=== PATIENT | male | born 1990 | race Caucasian/White ===

== ENCOUNTER 2018-12-01 10:39 | Day surgery (SDC) | payer OTHER ==
[2018-12-01] MEDS ORDERED: ceFAZolin 2 GM/DEXTROSE 100 ML IV ONE (10:50)
[2018-12-01] MEDS ORDERED: LR 1,000 ML IV ONE (10:51)
--- NOTE | 2018-12-01 13:04 | PDHPUP ---
History & Physical Update H&P update statement: This history and physical update is based on an assessment of the patient which was completed after admission or registration (within 24 hours), but prior to the surgery/procedure. H&P update: H&P reviewed & patient examined, no change in patient's condition since H&P completed
[2018-12-01] MEDS ORDERED: BUPIVACAINE 0.5% 30 ML SDV ONE (13:10)
[2018-12-01] MEDS ORDERED: MIDAZOLAM 2 MG/2 ML VIAL IVP ONE (13:11)
--- NOTE | 2018-12-01 13:11 | PDANEPAE ---
ANE History of Present Illness testicular torsion, resolved. Here for bilateral orchiopexy ANE Past Medical History - Cardiovascular History Hx Hypertension: No Hx Arrhythmias: No Hx Chest Pain: No Hx Coronary Artery / Peripheral Vascular Disease: No Hx CHF / Valvular Disease: No Hx Palpitations: No - Pulmonary History Hx COPD: No Hx Asthma/Reactive Airway Disease: No Hx Recent Upper Respiratory Infection: No Hx Oxygen in Use at Home: No Hx Sleep Apnea: No Sleep Apnea Screening Result - Last Documented: Negative - Neurologic History Hx Cerebrovascular Accident: No Hx Seizures: No Hx Dementia: No - Endocrine History Hx Diabetes: No - Renal History Hx Renal Disorders: No - Liver History Hx Hepatic Disorders: No - Neurological & Psychiatric Hx Hx Neurological and Psychiatric Disorders: No - Cancer History Hx Cancer: No - Congenital Disorder History Hx Congenital Disorders: No - GI History Hx Gastrointestinal Disorders: No Gastrointestinal History Comment: OCCATIONAL HEARTBURN - Other Health History Other Health History: NONE - Chronic Pain History Chronic Pain: No - Surgical History Prior Surgeries: wisdom teeth extracted. T&A ANE Review of Systems Review of Systems: - Exercise capacity METS (RN): 5 METS ANE Patient History - Allergies Allergies/Adverse Reactions: No Known Allergies Allergy (Unverified 11/29/18 16:30) - Home Medications Home Medications: Cholecalciferol (Vitamin D3) 11/29/18 [Last Taken 11/22/18] Fish Oil 1000 mg (*) 11/29/18 [Last Taken 11/22/18] - NPO status NPO Since - Liquids (Date): 12/01/18 NPO Since - Liquids (Time): 09:15 NPO Since - Solids (Date): 12/01/18 NPO Since - Solids (Time): 21:00 - Smoking Hx Smoking Status: Never smoked - Family Anes Hx Family Hx Anesthesia Complications: none ANE Labs/Vital Signs - Vital Signs Blood Pressure: 122/76 Heart Rate: 65 Respiratory Rate: 16 O2 Sat (%): 99 Height: 195.58 cm Weight: 90.718 kg ANE Physical Exam - Airway Neck exam: FROM Mallampati Score: Class 1 Mouth exam: normal dental/mouth exam - Pulmonary Pulmonary: no respiratory distress, no rales or rhonchi - Cardiovascular Cardiovascular: regular rate and rhythym, no murmur, rub, or gallop - ASA Status ASA Status: I ANE Anesthesia Plan Anesthesia Plan: GA w LMA Total IV Anesthesia: No
[2018-12-01] MEDS ORDERED: DEXAMETHASONE 4 MG/ML VIAL ONE (13:13)
[2018-12-01] MEDS ORDERED: ONDANSETRON 4 MG/2 ML VIAL ONE (13:13)
[2018-12-01] MEDS ORDERED: LIDOCAINE 2% 100 MG/5 ML SYR ONE (13:13)
[2018-12-01] MEDS ORDERED: fentaNYL 100 MCG/2 ML INJ ONE (13:14)
[2018-12-01] MEDS ORDERED: PROPOFOL 200 MG/20 ML VIAL ONE ×2 (13:14→13:30)
[2018-12-01] MEDS ORDERED: MIDAZOLAM 2 MG/2 ML VIAL ONE (13:15)
[2018-12-01] MEDS ORDERED: HYDROmorphONE/DILAUDID 2 MG/ML INJ ONE (13:53)
[2018-12-01] MEDS ORDERED: BACITRACIN ZINC 0.5 OZ OINTTUBE TP ONE (15:23)
[2018-12-01] MEDS ORDERED: DIAZEPAM 5 MG/ML 1 ML SYR IVP PRN (15:25)
[2018-12-01] MEDS ORDERED: NALOXONE HCL 0.4 MG/ML INJ IVP PRN (15:25)
[2018-12-01] MEDS ORDERED: MEPERIDINE 25 MG/0.5 ML AMP IVP PRN (15:25)
[2018-12-01] MEDS ORDERED: oxyCODONE IR 5 MG TAB PO PRN (15:25)
[2018-12-01] MEDS ORDERED: ACETAMINOPHEN 500 MG TAB PO PRN (15:25)
[2018-12-01] MEDS ORDERED: PROMETHAZINE HCL 25 MG/ML INJ IVP PRN (15:25)
[2018-12-01] MEDS ORDERED: HYDROmorphONE/DILAUDID 2 MG/ML INJ IVP PRN (15:25)
[2018-12-01] MEDS ORDERED: fentaNYL 100 MCG/2 ML INJ IVP PRN (15:25)
[2018-12-01] MEDS ORDERED: LR 500 ML IV PRN (15:25)
--- NOTE | 2018-12-01 15:38 | POSTANESTH ---
Post Anesthetic Evaluation Cardiovascular Status: Normal, Stable Respiratory Status: Normal, Stable Level of Consciousness/Mental Status: Can Participate in Eval, Mildly Sleepy, Arousable Pain Control: Adequate, Prn Tx Ordered Nausea/Vomiting Control: Adequate, Prn Tx Ordered Complications Possibly Related to Anesthesia: None Noted
--- NOTE | 2018-12-01 15:58 | POSTOPPROG ---
Post Op Note Date of Operation: 12/01/18 Surgeon: Amy Chawla Anesthesiologist: Zachary Anesthesia: GET(General Endotracheal) Pre-op Diagnosis: left intermittent torsion of testicle Post-op Diagnosis: same Indication: left intermittent torsion of testicle Procedure: bilateral orchipexy Findings: left testicle w mild edema, suggestingrecent evidence of trauma from torsio Inf/Abcess present in the surg proc area at time of surgery?: No EBL: Minimal Complications: none, pt tolerated procedure well Specimen(s): tunica vaginalis
[2018-12-01 16:48] VITALS: BP 123/78
--- NOTE | 2018-12-02 09:16 | GOP ---
[f rep st] OPERATIVE REPORT DATE OF OPERATION: 12/01/2018 SURGEON: Amy Chawla MD ANESTHESIA: General. ANESTHESIOLOGIST: Cristina Sharma DO PREOPERATIVE DIAGNOSIS: Left intermittent torsion of the testicle. POSTOPERATIVE DIAGNOSIS: Left intermittent torsion of the testicle. PROCEDURE PERFORMED: Bilateral orchiopexies. FINDINGS: edema of left testicle and surrounding datros indicating prior trauma from torsion. Normal right testicle. Good blood flow to both testicles. SPECIMENS: Tunica vaginalis. ESTIMATED BLOOD LOSS: Less than 5 mL. INDICATIONS: The patient presented to my office after having been seen in the ER with severe left testicular pain. The ER doctor did a manual detorsion of his testicle in the ER and he had immediate relief of pain. He then underwent an ultrasound, showing no torsion. Of note, he did not have any ultrasound demonstrating torsion. He then was referred to my office for discussion on future management of his left testicle. My recommendation was to do bilateral orchiopexies, given there is a great likelihood that he will have a repeat torsion on the left that may not be intermittent and may lead to testicular injury. He understood this and agreed to proceed. I did discuss the risks of orchiopexy, including bleeding, infection, pain, injury to the blood supply of the testicle, injury to the vas deferens, testicular atrophy over time, scrotal hematoma, infection, recurrent torsion, failure of the orchiopexy, and these risks were small, though the benefit of bilateral orchiopexies did not outweigh these risks, and he agreed to proceed. DESCRIPTION OF PROCEDURE: The patient was taken back to the operating room and placed on the operating room table in supine position. General anesthesia was induced without complication. Time-out performed. Core measures were satisfied , including placement of a Lucrecia Hugger, SCDs, and administration of 2 g Ancef antibiotics. He was in a supine position. His genitalia were shaven, then prepped with Betadine and draped in the standard surgical fashion. A marking pen was used to cecy out the median raphae and then 0.5% Marcaine plain was used to anesthetize the skin at the area that would be the incision, then a 10-blade was used to cecy out a 5 cm incision in the median raphae. Electrocautery took this incision down to the dartos. Left testicle was positioned underneath the incision and the dartos-cremasteric attachments were then dissected free off the tunica vaginalis with blunt and electrocautery dissection. The tunica vaginalis, once it was completely exposed, was then opened sharply with tenotomy scissors and then electrocautery used to continue to open the tunica vaginalis in a longitudinal fashion. The testicle was then exposed. Of note, there was edema surrounding the testicle and the dartos, indicating that there was prior trauma that had been recent, which would be approximately a week ago. At this point, the tunica vaginalis had been opened, the testicle evaluated and examined. It was very healthy. There were no abnormalities. The tunica vaginalis was excised approximately 1 cm away from the epididymis and cord structure. It was excised and electrocautery was used liberally on the edge and then the edge was oversewn with 3-0 chromic and this was to prevent future hydrocele and ensure hemostasis. At this point, the testicle was then wrapped in moist gauze and placed to the side. Attention was focused on the right testicle. That was brought up into the incision. Again, the dartos-cremasteric attachments were dissected free and then the tunica vaginalis exposed was opened longitudinally with sharp and electrocautery dissection. The testicle was evaluated. There was a small testicular appendage that was removed. The tunica vaginalis was excised in the same manner as on the left testicle and the edge was cauterized and oversewn with 3- 0 chromic, again to prevent future hydrocele. The fixation of the right testicle was done in the right hemiscrotum with 3-0 Vicryl and was fixed in 2 spots on the right lateral testis fixed to the right latera dartos and the right medial testis secured to the septum, making sure not to injure the epididymis or any other important structures. It was fixed and sat in a nice spot in the right hemiscrotum. It was placed with the lateral sulcus lateral, and there was no twist in the cord, and the testicle remained healthy-looking throughout the entire procedure. The same orchiopexy fixation was done then on the left testicle, with the left testicle placed with the left lateral sulcus lateral and then fixated to the septum and to the lateral scrotal wall in a nice dependent position in the left hemiscrotum. At this point, hemostasis was excellent in the dartos. The scrotum was irrigated with normal saline and then the dartos closed in a running fashion with 2-0 chromic, including the septum in the closure, making sure not to injure any aspect of the testicle or the epididymis. Then, the wound was again irrigated and then the skin was closed with 3-0 chromic in an interrupted horizontal mattress fashion. Bacitracin was placed on top and then fluffs and scrotal support. At this point, the procedure was considered complete. He was awoken from anesthesia and transferred to PACU in good condition. COMPLICATIONS: None. The patient tolerated the procedure well. /[id number]/MODL MTDD
== END 2018-12-01 17:02 | disposition home or self-care (01) ==
LOC: FSGY 10:39
PROVIDERS: ATTEND Urology
PROC: 0VSC0ZZ Reposition Bilateral Testes, Open Approach (ICD-10-PCS; principal; 2018-12-01 12:15)
DX: N44.00 Torsion of testis, unspecified (principal)
CPT/HCPCS: J0690; J1100; J1170; J2001; J2250; J2405; J2704; J3010